=== PATIENT | female | born 1995 ===

== ENCOUNTER 2021-11-23 18:52 | Emergency (ER) | payer MEDICAID, OTHER ==
[~2021-11-23] VITALS: Ht 162.6 cm; Wt 102.1 kg
[2021-11-23 22:58] VITALS: BP 135/64
== END 2021-11-23 23:01 | disposition home or self-care (01) ==
LOC: ER 18:52
DX: R11.10 Vomiting, unspecified (principal); M79.10 Myalgia, unspecified site; R50.9 Fever, unspecified; Z20.822 Contact with and (suspected) exposure to COVID-19
CPT/HCPCS: 36415; 87426